=== PATIENT | male | born 2005 | race Caucasian/White ===

== ENCOUNTER 2024-05-11 09:41 | Emergency (ER) | payer SELFPAY ==
[2024-05-11] VITALS (23 sets, daily range): BP systolic 84–139; BP diastolic 59–82; PULSE 53–92; RESP 13–23; TEMP 36.3–36.8; O2SAT 97–100
--- NOTE | ~2024-05-11 | XR_ITS ---
EXAMINATION: XR chest 2V 05/11/2024 11:12 INDICATION: Shortness of breath and lightheadedness PROCEDURE: 2 view chest COMPARISON: No prior studies for comparison. FINDINGS: The lungs are clear. The cardiomediastinal silhouette is within normal limits. There are no pleural effusions. There is no pneumothorax suspected. IMPRESSION: 1: NO ACUTE CARDIOPULMONARY DISEASE. Reviewed, dictated and finalized at location B.
--- NOTE | 2024-05-11 09:54 | ECG_ITS ---
Test Date: 2024-05-11 10:05:57 Measurements Intervals [place] Rate: 68 P: -1 MD: 151 QRS: 30 QRSD: 98 T: 14 QT: 376 QTc: 400 Interpretive Statements SINUS RHYTHM WITH MARKED SINUS ARRHYTHMIA BASELINE ARTIFACT- I, II, III, AVR, AVL, AVF, V1-V6 BORDERLINE ECG No previous ECG available for comparison Electronically Signed On 05-11-2024 12:28:06 CDT by Keyur Granados D.O.
--- NOTE | 2024-05-11 10:52 | ED.SOB ---
HPI - SOB/Dyspnea General Chief Complaint: Dizziness Stated Complaint: light-headed, dizzy Time Seen by Provider: 05/11/24 10:27 Source: patient Mode of arrival: EMS Limitations: no limitations History of Present Illness HPI Narrative: This is a 18 year old male that presents to the ER for lightheadedness. Reports he was at work and hadn't eaten any breakfast. Reports feeling lightheaded. Reports EMS came and his blood sugar was low. Also reports feeling like he cant take a deep breath. Report discomfort with breathing. Denies fever, cough, lower extremity edema. Related Data Allergies Allergy/AdvReac Type Severity Reaction Status Date / Time No Known Allergies Allergy Verified 05/11/24 11:23 Review of Systems Review of Systems: CONSTITUTIONAL: Denies fever CARDIOVASCULAR: Denies chest pain, or edema. RESPIRATORY: Reports dyspnea. Denies cough All systems reviewed & are unremarkable except as noted in HPI and below PMFSH Past Medical History Medical History (Updated 05/11/24 @ 14:01 by Elsa Zurita PA-C) No active medical problems Social History Social History (Updated 05/11/24 @ 10:56 by Elsa Zurita PA-C) Smoking status: Current every day smoker Tobacco type: e-cigarettes/vaping Substance use: current Substance use type: marijuana Exam Narrative: GENERAL: Well-appearing, well-nourished, and in no acute distress. HEAD: Normocephalic, atraumatic. EYES: PERRLA and EOMI. ENT: Nares clear, no rhinorrhea or epistaxis. Mucous membranes moist. Oropharynx without tonsillar hypertrophy exudate or other lesions. Bilateral TMs pearly cruz non-bulging NECK: Supple. No adenopathy or masses. No carotid bruits or JVD CHEST: Clear to auscultation. No respiratory distress. No wheezes rales or rhonchi HEART: Regular rate and rhythm. No murmur heard. Normal peripheral pulses. ABDOMEN: Soft, nontender, nondistended, normal active bowel sounds. EXTREMITIES: Normal range of motion. No edema. SKIN: Warm, dry, no rash. NEURO: No focal deficits. Alert and oriented x3. CN II-XII grossly intact PSYCH: Normal mood and affect Course Course Emergency Course: Patient and family updated on workup and agree with plan of care Vital Signs Vital signs: Vital Signs Temperature 98.3 F 05/11/24 09:47 Pulse Rate 71 05/11/24 09:47 Respiratory Rate 18 05/11/24 09:47 Blood Pressure 127/77 05/11/24 09:47 Pulse Oximetry 99 05/11/24 09:47 Temperature 97.8 F 05/11/24 11:03 Pulse Rate 92 05/11/24 12:29 Respiratory Rate 17 05/11/24 12:17 Blood Pressure 128/81 05/11/24 13:31 Pulse Oximetry 97 05/11/24 13:31 Oxygen Delivery Room Air 05/11/24 09:55 MDM - SOB/Dyspnea MDM Narrative Medical decision making narrative: Patient presents to the emergency department for feelings of difficulty breathing. His lungs are clear on exam. Oxygen saturation is normal on room air. He is neurologically intact. Reporting some lightheadedness. Was found to be hypoglycemic at work. He had not eaten breakfast today. CBC without concerning findings. Metabolic panel with some mild dehydration. Patient was hydrated with L fluids in the ED. His blood sugar is normal. Chest x-ray without acute cardiopulmonary abnormality. D-dimer is not elevated. EKG without concerning changes. Patient and family updated on workup and agree with plan of care. Patient reports feeling well. He is to follow up with primary provider. He was given warnings to return to the ER Differential Diagnosis Differential diagnosis: Likely community acquired pneumonia, asthma with exacerbation, pulmonary embolism and other (Dehydration, electrolyte derangement, arrhythmia) Lab Data Attestation: I reviewed the patient's lab results. 05/11/24 10:37 05/11/24 10:37 Labs: Lab Results 05/11/24 05/11/24 Range/Units 10:36 10:37 WBC 6.7 (4.5-10.0) K/mm3 RBC 4.47 L (4.6-6.20) M/mm3 Hgb 14
[2024-05-11 11:01] LABS: Basophils Absolute Auto 0.1 K/mm3 (0.0-0.1); Basophils Percent Auto 0.9 % (0.2-1.2); Eosinophils Absolute Auto 0.2 K/mm3 (0-0.3); Eosinophils Percent Auto 3.6 % (0-4.4); Hematocrit 41.2 % (42.0-52.0); Hemoglobin 14.6 g/dL (14.0-18.0); Immature Granulocyte Absolute 0.01 K/mm3 (0.00-0.031); Immature Granulocyte Percent A 0.1 % (0-0.5); Lymphocytes Absolute Auto 1.86 K/mm3 (0.9-3.2); Lymphocytes Percent Auto 27.8 % (18.3-44.2); Mean Corpuscular HGB Conc 35.4 g/dl (32-36); Mean Corpuscular Hemoglobin 32.7 pg (26-34); Mean Corpuscular Volume 92.2 fl (80-100); Mean Platelet Volume 11.6 fl (7.4-10.4); Monocytes Absolute Auto 0.6 K/mm3 (0.1-0.6); Neutrophils Absolute Auto 3.9 K/mm3 (1.3-6.7); Neutrophils Percent Auto 58.6 % (45.5-73.1); Platelet Count Result 230 k/mm3 (150-375); Red Blood Count 4.47 M/mm3 (4.6-6.20); Red Cell Distribution Width 11.5 % (11.5-14.5); White Blood Count 6.7 K/mm3 (4.5-10.0)
[2024-05-11 11:13] LABS: Creatine Kinase 123 U/L (55-170)
[2024-05-11 11:14] LABS: D Dimer 0.47 ug/mL (<0.48)
[2024-05-11 11:16] LABS: Alanine Aminotransferase 21 U/L (6-50); Alkaline Phosphatase 81 U/L (38-126); Anion Gap 14 mmol/L (4-12); Aspartate Amino Transferase 23 U/L (17-59); Bilirubin,Total 1.7 mg/dL (0.2-1.3); Blood Urea Nitrogen 16 mg/dL (9-20); Calcium 9.5 mg/dL (8.4-10.2); Carbon Dioxide 25 mmol/L (22-30); Chloride 102 mmol/L (98-107); Estimated CRCL calculation 166 ml/min; Estimated Glomerular Filt Rate > 60; Glucose 96 mg/dL (65-110); Potassium 3.6 mmol/L (3.4-5.0); Sodium 141 mmol/L (137-145)
[2024-05-11] MEDS: SODIUM CHLORIDE 0.9% IV 1,000 ML 999 ML IV CONT (11:22)
[2024-05-11 11:26] LABS: Troponin I < 0.012 ng/mL (0.000-0.034)
== END 2024-05-11 14:16 | disposition home or self-care (01) ==
PROVIDERS: Emergency Provider Physician Assistant
DX: E16.2 Hypoglycemia, unspecified (principal); E86.0 Dehydration; F17.290 Nicotine dependence, other tobacco product, uncomplicated; R94.31 Abnormal electrocardiogram [ECG] [EKG]
CPT/HCPCS: 36415; 71046; 80053; 82550; 84484; 85025; 85380; 93005; 96360; 99284; J7030